=== PATIENT | female | born 1995 | race Caucasian/White ===

== ENCOUNTER 2017-10-15 18:05 | Emergency (ER) | payer SELFPAY ==
[2017-10-15 18:30] VITALS: BP 120/71; PULSE 100
[2017-10-15 19:30] VITALS: RESP 18; TEMP 98.1
[2017-10-15 19:56] LABS: HEMATOCRIT 34.4 % (35.0-46.0); MEAN CELL VOLUME 84.2 FL (80.0-100.0); MEAN CORPUSCULAR HEMOGLOBIN 29.4 PG (27.0-34.0); MEAN CORPUSCULAR HGB CONC 34.9 % (32.0-36.0); MEAN PLATELET VOLUME 8.7 FL (7.0-11.0); PLATELET COUNT 212 TH/MM3 (150-450); RED BLOOD COUNT 4.09 MIL/MM3 (4.00-5.30); RED CELL DISTRIBUTION WIDTH 13.2 % (11.6-17.2); WHITE BLOOD COUNT 10.7 TH/MM3 (4.0-11.0)
[2017-10-15 20:02] LABS: BACTERIA, URINE OCC /hpf; BILIRUBIN, URINE NEG (NEG); BLOOD, URINE NEG (NEG); GLUCOSE,URINE NEG (NEG); KETONE, URINE NEG (NEG); MUCUS URINE FEW /lpf (OCC); NITRITE,URINE NEG (NEG); SQUAMOUS EPITHELIAL CELL URINE 3 /hpf (0-5); URINE COLOR YELLOW (YELLW/STRAW); URINE LEUKOCYTE ESTERASE NEG (NEG)
--- NOTE | 2017-10-15 20:05 | PD ---
HPI Chief Complaint back pain Date Seen: Oct 15, 2017 Time Seen: 19:56 Travel History International Travel<30 Days: No Contact w/Intl Traveler<30Days: No Known Affected Area: No History of Present Illness HPI 22y/o G1 @ 24.6wks. [place]. She presents to the hospital with reports of back pain on the L side which started at 16:30pm. Pt states she was unable to urinate but had pain. She drank water and took Azo but was still unable to urinate. She eventually was able to once arriving to triage. Pt denies hematuria. No dysuria or odor. She denies fever/chills. She also denies a h/o renal stones. She has had emesis since arrival. No ctx, LOF, vb. +FM. Weeks Gestation: 24 Para: 0 : 1 History Past Medical History Medical History: Denies Significant Hx Obstetric History Obstetric History 1. current Past Surgical History Narrative Surgical sinus surgeries Family History Family History: Negative Social History Alcohol Use: No Tobacco Use: No Substance Abuse: No Allergies-Medications (Allergen,Severity, Reaction): Coded Allergies: No Known Allergies (Unverified , 10/15/17) Narrative Medication tylenol PNVs Review of Systems Except as stated in HPI: all other systems reviewed are Neg Physical Exam Vital Signs Date Time Temp Pulse Resp B/P (MAP) Pulse Ox O2 Delivery O2 Flow Rate FiO2 10/15/17 19:30 98.1 18 10/15/17 18:30 100 120/71 (87) Narrative General: well developed, well nourished, writhing in bed HEENT: normocephalic atraumatic, extraocular movements intact, neck supple Abdomen: soft, gravid, nontender, nondistended Back: CVA TTP on left Extremities: full range of motion Skin: normal coloration, no rashes, no suspicious skin lesions noted Neurologic: cranial nerves 2-12 grossly intact, normal muscle tone, normal gait Psychiatric: normal mood and affect, appropriate FHTs: 140s, age appropriate [place]: quiet Data Data Vital Signs Reviewed: Yes Orders Orders Vital Signs (Adult) .ON ADMISSION (10/15/17 18:35) ^ Labor Status (10/15/17 18:35) Urinalysis - C+S If Indicated (10/15/17 18:35) ^ Non Stress Test (10/15/17 18:35) Cbc No Diff, Includes Plts (10/15/17 18:35) Labs Laboratory Tests Test 10/15/17 19:15 MDM Plan 22y/o G1 @ 24.6wks with flank pain. -- pyelo vs stone vs MSK pain -- CBC, UA ordered -- consider renal US pending results Update: labs WNL. Renal US with mild b/l hydronephrosis. No evidence of stone. Pt advised this may be MSK pain. Tylenol and heating pad use PRN. Stable for d/c home. Diagnosis Diagnosis: Primary Impression: 24 weeks gestation of Additional Impression: Flank pain Brice Ochoa MD Oct 15, 2017 20:05
--- NOTE | 2017-10-15 21:01 | RADRPT ---
EXAM DATE: 10/15/2017 8:58 PM EDT AGE/SEX: 22 years / Female INDICATIONS: Left flank pain. CLINICAL DATA: This is the patient's initial encounter. Patient reports that signs and symptoms have been present for 1 day and indicates a pain score of 10/10. MEDICAL/SURGICAL HISTORY: . . COMPARISON: No prior exams available for comparison. MEASUREMENTS: Right Kidney:__12.0 x 5.7 x 5.8 cm cm Left Kidney:__12.0 x 7.4 x 5.4 cm cm FINDINGS: Right Kidney: Mild hydronephrosis. No mass. No calculi. Left Kidney: Mild hydronephrosis. No mass. No calculi. Bladder: Within normal limits given the degree of distension. CONCLUSION: 1. Mild hydronephrosis of both kidneys. Electronically signed by: Jace Nixon MD 10/15/2017 9:00 PM EDT
== END 2017-10-15 22:31 | disposition home or self-care (01) ==
LOC: HOBED 18:05
DX: O26.892 Other specified pregnancy related conditions, second trimester (principal); R10.9 Unspecified abdominal pain; M54.9 Dorsalgia, unspecified; R30.0 Dysuria; R11.10 Vomiting, unspecified; Z3A.24 24 weeks gestation of pregnancy
CPT/HCPCS: 76775; 81001; 85027; 96374; 99284; J3010